=== PATIENT | female | born 1955 | race Caucasian/White ===

== ENCOUNTER 2021-04-19 21:15 | Outpatient (REF) | payer MEDICARE, BC, SELFPAY ==
[2021-04-19 20:39] LABS: Abs Immature Grans 0.01 10^3/uL (0.0-0.06); Absolute Basophil Count 0.06 10^3/uL (0.0-0.2); Absolute Eosinophil Count 0.05 10^3/uL (0.0-0.7); Absolute Lymphocyte Count 1.89 10^3/uL (1.2-3.4); Absolute Monocyte Count 0.58 10^3/uL (0.1-0.8); Absolute Neutrophil Count 4.24 10^3/uL (1.2-6.7); Basophils % 0.9; Eosinophils % 0.7; HGB 12.2 g/dL (11.2-15.7); Immature Grans % 0.1; Lymphocytes % 27.7; MCH 31.1 pg (27.0-33.0); MCV 94.4 fL (80-95); MPV 11.4 fL (8.0-11.0); Monocytes % 8.5; Neutrophils % 62.1; Nucleated RBC 0 %; Platelet Count 240 10^3/uL (130-400); RBC 3.92 10^6/uL (3.93-5.22); RDW 12.9 % (11.7-14.6); RDW-SD 44.6 fL; WBC 6.83 10^3/uL (4.4-10.8)
[2021-04-19 21:01] LABS: ALT 25 U/L (14-59); AST 16 U/L (15-37); Albumin 3.8 g/dL (3.4-5.0); Alkaline Phosphatase 58 U/L (46-116); Anion Gap 6.2 mmol/L (3-11); BUN 15 mg/dL (7-18); Bilirubin, Total 0.3 mg/dL (0.2-1.0); CO2 27.8 mmol/L (21.0-32.0); CREATININE 0.7 mg/dL (0.55-1.02); Chloride 101 mmol/L (98-107); Glucose 89 mg/dL (74-106); Potassium 4.9 mmol/L (3.5-5.1); Sodium 135 mmol/L (136-145)
== END 2021-04-19 21:16 | disposition home or self-care (01) ==
LOC: NCHCN 21:15
PROVIDERS: PCP Family Medicine; Visit Provider Internal Medicine
DX: Z00.00 Encounter for general adult medical examination without abnormal findings (principal); Z80.9 Family history of malignant neoplasm, unspecified
CPT/HCPCS: 80053; 85025

== ENCOUNTER 2023-04-25 14:22 | Outpatient (REF) | payer MEDICARE, BC, SELFPAY ==
[2023-04-25 17:47] LABS: Anion Gap 6.9 mmol/L (3-11); BUN 16 mg/dL (7-18); CO2 28.1 mmol/L (21.0-32.0); CREATININE 0.7 mg/dL (0.55-1.02); Calcium 9.8 mg/dL (8.5-10.1); Calculated LDL 115 mg/dL (<100); Chloride 96 mmol/L (98-107); Cholesterol 251 mg/dL (<200); Estimated GFR 93.56 (mL/min/1.73m2); Glucose 98 mg/dL (74-106); HDL Cholesterol 125 mg/dL (40-60); Potassium 4.6 mmol/L (3.5-5.1); Sodium 131 mmol/L (136-145); Triglyceride 58 mg/dL (<150)
== END 2023-04-25 14:23 | disposition home or self-care (01) ==
LOC: NCHCN 14:22
PROVIDERS: PCP Family Medicine; Visit Provider Internal Medicine
DX: Z00.00 Encounter for general adult medical examination without abnormal findings (principal); Z13.220 Encounter for screening for lipoid disorders
CPT/HCPCS: 80048; 80061

== ENCOUNTER 2023-06-13 14:15 | Outpatient (REF) | payer MEDICARE, BC, SELFPAY ==
[2023-06-13 21:21] LABS: Anion Gap 4.6 mmol/L (3-11); BUN 13 mg/dL (7-18); CO2 31.4 mmol/L (21.0-32.0); CREATININE 0.8 mg/dL (0.55-1.02); Calcium 9.2 mg/dL (8.5-10.1); Chloride 94 mmol/L (98-107); Estimated GFR 79.71 (mL/min/1.73m2); Glucose 105 mg/dL (74-106); Potassium 4.7 mmol/L (3.5-5.1); Sodium 130 mmol/L (136-145)
[2023-06-14 01:12] LABS: Sodium, Urine 31 mmol/L
[2023-06-14 17:36] LABS: Osmolality, Urine 225 mOsm/kg (150-1150)
== END 2023-06-13 14:16 | disposition home or self-care (01) ==
LOC: NCHCN 14:15
PROVIDERS: PCP Family Medicine; Visit Provider Internal Medicine
DX: E87.1 Hypo-osmolality and hyponatremia (principal)
CPT/HCPCS: 80048; 83935; 84300

== ENCOUNTER 2023-09-12 15:11 | Outpatient (REF) | payer MEDICARE, BC, SELFPAY ==
[2023-09-12 21:24] LABS: Anion Gap 6.2 mmol/L (3-11); BUN 18 mg/dL (7-18); CO2 27.8 mmol/L (21.0-32.0); CREATININE 0.6 mg/dL (0.55-1.02); Calcium 8.9 mg/dL (8.5-10.1); Chloride 94 mmol/L (98-107); Glucose 92 mg/dL (74-106); Potassium 5.6 mmol/L (3.5-5.1); Sodium 128 mmol/L (136-145)
== END 2023-09-12 15:12 | disposition home or self-care (01) ==
LOC: NCHCN 15:11
PROVIDERS: PCP Family Medicine; Referring Provider Internal Medicine; Visit Provider Internal Medicine
DX: E87.1 Hypo-osmolality and hyponatremia (principal)
CPT/HCPCS: 80048

== ENCOUNTER 2023-11-04 15:05 | Outpatient (REF) | payer MEDICARE, BC, SELFPAY ==
[2023-11-04 15:02] LABS: Anion Gap 6.3 mmol/L (3-11); BUN 19 mg/dL (7-18); CO2 30.7 mmol/L (21.0-32.0); CREATININE 0.7 mg/dL (0.55-1.02); Calcium 9.3 mg/dL (8.5-10.1); Chloride 97 mmol/L (98-107); Estimated GFR 92.98 (mL/min/1.73m2); Glucose 98 mg/dL (74-106); Potassium 4.9 mmol/L (3.5-5.1); Sodium 134 mmol/L (136-145)
== END 2023-11-04 15:06 | disposition home or self-care (01) ==
LOC: NCHCN 15:05
PROVIDERS: PCP Family Medicine; Visit Provider Internal Medicine
DX: E87.1 Hypo-osmolality and hyponatremia (principal)
CPT/HCPCS: 80048

== ENCOUNTER 2024-01-29 21:00 | Outpatient (REF) | payer MEDICARE, BC, SELFPAY | END 2024-01-29 21:01 | disposition home or self-care (01) | LOC: NCHCN 21:00 | PROVIDERS: PCP Family Medicine; Visit Provider Physician Assistant | DX: R39.89 Other symptoms and signs involving the genitourinary system (principal) | CPT/HCPCS: 87086 ==

== ENCOUNTER 2024-04-27 16:30 | Outpatient (REF) | payer MEDICARE, BC, SELFPAY ==
[2024-04-27 19:30] LABS: Anion Gap 7.7 mmol/L (3-11); BUN 19 mg/dL (7-18); CO2 29.3 mmol/L (21.0-32.0); CREATININE 0.8 mg/dL (0.55-1.02); Calcium 9.6 mg/dL (8.5-10.1); Chloride 100 mmol/L (98-107); Estimated GFR 79.22 (mL/min/1.73m2); Glucose 100 mg/dL (74-106); Potassium 4.8 mmol/L (3.5-5.1); Sodium 137 mmol/L (136-145)
== END 2024-04-27 16:31 | disposition home or self-care (01) ==
LOC: NCHCN 16:30
PROVIDERS: PCP Family Medicine; Visit Provider Internal Medicine
DX: E87.1 Hypo-osmolality and hyponatremia (principal)
CPT/HCPCS: 80048

== ENCOUNTER 2025-01-29 17:46 | Outpatient (REF) | payer MEDICARE, BC, SELFPAY ==
[2025-01-29 18:31] LABS: Abs Immature Grans 0.01 10^3/uL (0.0-0.06); HCT 26.2 % (36.0-46.0); HGB 8.6 g/dL (11.2-15.7); Immature Grans % 0.2 %; MCH 28.7 pg (27.0-33.0); MCHC 32.8 % (32.0-36.0); MCV 87 fL (80-95); MPV 10.8 fL (8.0-11.0); Platelet Count 288 10^3/uL (130-400); RBC 3.00 10^6/uL (3.93-5.22); RDW 13.5 % (11.7-14.6); RDW-SD 43.4 fL; WBC 6.47 10^3/uL (4.4-10.8)
[2025-01-29 18:46] LABS: ALT 28 U/L (14-59); AST 18 U/L (15-37); Albumin 3.8 g/dL (3.4-5.0); Alkaline Phosphatase 46 U/L (46-116); Anion Gap 8.6 mmol/L (3-11); BUN 14 mg/dL (7-18); Bilirubin, Total 0.2 mg/dL (0.2-1.0); CO2 28.4 mmol/L (21.0-32.0); Calcium 9.4 mg/dL (8.5-10.1); Chloride 97 mmol/L (98-107); Estimated GFR 100.21 (mL/min/1.73m2); Glucose 102 mg/dL (74-106); Lipase 45 U/L (<78); Potassium 4.4 mmol/L (3.5-5.1); Sodium 134 mmol/L (136-145); Total Protein 7.3 g/dL (6.4-8.2)
== END 2025-01-29 17:47 | disposition home or self-care (01) ==
LOC: NCHCN 17:46
PROVIDERS: PCP Family Medicine; Visit Provider Internal Medicine
DX: R10.12 Left upper quadrant pain (principal)
CPT/HCPCS: 80053; 83690; 85025

== ENCOUNTER 2025-02-01 13:51 | Outpatient (REF) | payer MEDICARE, BC, SELFPAY ==
[2025-02-01 21:59] LABS: Iron 38 ug/dL (50-170); Total Iron Binding Capacity 369 ug/dL (250-450); Transferrin Sat 10 % (15-50)
[2025-02-01 22:25] LABS: Ferritin 12 ng/mL (8-252); Vitamin B12 407 pg/mL (193-986)
[2025-02-05 13:39] LABS: Helicobacter pylori Ag, Feces Negative (Negative)
== END 2025-02-01 13:52 | disposition home or self-care (01) ==
LOC: NCHCN 13:51
PROVIDERS: PCP Family Medicine; Visit Provider Internal Medicine
DX: D64.9 Anemia, unspecified (principal); R10.12 Left upper quadrant pain
CPT/HCPCS: 87338; 82607; 82728; 83540; 83550; 85045

== ENCOUNTER 2025-02-04 01:03 | Outpatient (CLI) | payer MEDICARE, BC, SELFPAY ==
--- NOTE | 2025-02-04 | DI.CT_ITS ---
Exam(s) CT ABDOMEN PELVIS W EXAM: CT ABDOMEN PELVIS W CLINICAL HISTORY: L UPPER QUAD ABD PAIN, R10.12 ABD PAIN [id number] ,TENDER ON EXAM. TECHNIQUE: Imaging Protocol: Axial computed tomography images with coronal and sagittal reformatted images were created and reviewed CONTRAST MATERIAL: Intravenous: Omnipaque 350 Contrast volume:75 ml Oral: Wall small kidney no COMPARISON: No exams were available for comparison FINDINGS: ABDOMEN and PELVIS: The exam is somewhat limited due to paucity of intra-abdominal fat. Lung Bases: No acute findings. Liver: Normal density. No suspicious mass. Gallbladder and biliary tract: Cholecystectomy. No biliary dilation. Pancreas: Normal density. No abnormal calcifications or inflammatory process. Ill-defined mass noted at the tail of the pancreas, difficult to discretely measure but measuring approximately 5 x 3 x 2.5 cm. It is difficult to separate from the posterior aspect of the stomach. There is attenuation of the splenic vein. Splenic artery appears patent. Spleen: Normal. Kidneys: Normal size, contour and axis. No radiodense stones. No obstructive uropathy. No suspicious masses seen. Parapelvic cysts are noted in the left kidney. Adrenal glands: No masses seen. Vasculature: Abdominal aorta non-dilated. Soft tissues: Unremarkable. Bladder: No gross wall thickening. No calculi.No focal mass. Bowel: No obstruction. No bowel wall thickening. Appendix not seen. Surgical clips at cecal base. Large quantity of fecal material. Peritoneal cavity: there is a moderate quantity of ascites, seen around the liver and spleen and extending into the pelvis. No focal collection. No mesenteric inflammatory response. No free air. Bones: Unremarkable for age. Reproductive organs: Uterus atrophic. No evidence adnexal masses. Lymph nodes: No pathologically enlarged lymph nodes. IMPRESSION:: Suspicious ill-defined mass in the tail of the pancreas measuring approximately 5 cm. Moderate quantity of ascites in the abdomen and pelvis. RADIATION DOSE DELIVERED: 215.4mGy.cm Total DLP DATA REPOSITORY: All CT scans at this facility are submitted to the National Radiology Data Registry (NRDR) Dose Index Registry (DIR) with the [employer] ([employer]). RADIATION OPTIMIZATION: All CT scans at this facility use at least one of these dose optimization techniques: automated exposure control; mA and/or kV adjustment per patient size (includes targeted exams where dose is matched to clinical indication); or iterative reconstruction.
[2025-02-04] MEDS: Barium Sulfate 2% W/V-Berry Smoothie 450 ML BTL PO ×2 (09:56→09:57)
[2025-02-04] MEDS: Omnipaque 350 MG/ML 100 ML BTL 75 ML IJ (11:48)
[2025-02-04] MEDS: Normal Saline - Diluent 50 ML VIAL IJ (11:48)
== END 2025-02-04 01:23 ==
PROVIDERS: PCP Family Medicine; Visit Provider Internal Medicine
DX: R10.12 Left upper quadrant pain (principal); R18.8 Other ascites
CPT/HCPCS: 74177; J3490

== ENCOUNTER 2025-02-11 13:53 | Outpatient (REF) | payer MEDICARE, BC, SELFPAY ==
[2025-02-11 15:22] LABS: HCT 26.1 % (36.0-46.0); HGB 8.5 g/dL (11.2-15.7); MCH 27.7 pg (27.0-33.0); MCHC 32.6 % (32.0-36.0); MCV 85 fL (80-95); MPV 10.9 fL (8.0-11.0); Platelet Count 276 10^3/uL (130-400); RBC 3.07 10^6/uL (3.93-5.22); RDW 14.6 % (11.7-14.6); RDW-SD 45.3 fL; WBC 6.07 10^3/uL (4.4-10.8)
[2025-02-11 15:33] LABS: Anion Gap 5.8 mmol/L (3-11); BUN 13 mg/dL (7-18); CO2 29.2 mmol/L (21.0-32.0); Calcium 8.6 mg/dL (8.5-10.1); Chloride 94 mmol/L (98-107); Estimated GFR 92.41 (mL/min/1.73m2); Glucose 138 mg/dL (74-106); Potassium 4.5 mmol/L (3.5-5.1); Sodium 129 mmol/L (136-145)
== END 2025-02-11 13:54 | disposition home or self-care (01) ==
LOC: NCHCN 13:53
PROVIDERS: PCP Family Medicine; Visit Provider Internal Medicine
DX: E87.1 Hypo-osmolality and hyponatremia (principal); D64.9 Anemia, unspecified
CPT/HCPCS: 80048; 85027

== ENCOUNTER 2025-02-19 00:40 | Outpatient (CLI) | payer MEDICARE, BC, SELFPAY ==
[2025-02-19] MEDS: Normal Saline - Diluent 50 ML VIAL IJ (13:31)
[2025-02-19] MEDS: Omnipaque 350 MG/ML 500 ML BTL-Imaging package 70 ML IJ (13:32)
--- NOTE | 2025-02-19 13:33 | DI.CT_ITS ---
Exam(s) CT CHEST W EXAM: CT CHEST W CLINICAL HISTORY: K86.89 Other specified diseases pancreas, mass. TECHNIQUE: Multi planar reconstructions were performed. CONTRAST MATERIAL: Omnipaque 350; 70 mL cc COMPARISON: CT CT ABDOMEN PELVIS W from 02/04/2025 FINDINGS: CHEST: LUNGS: There are no intraluminal filling defects in the pulmonary arteries to suggest the presence acute pulmonary emboli in there is no evidence of pulmonary infarction.. There are no confluent infiltrates. There is a small amount of right pleural fluid. In the right lung there is a pleural based 4 millimeter nodule in the posterior segment of the right upper lobe there are no significant nodules in the left lung. There are no pleural effusions. MEDIASTINUM: There is no hilar nor mediastinal adenopathy. Visualized thyroid unremarkable. CARDIAC: Heart size is normal. There is no pericardial effusion.Caliber of the thoracic aorta is within normal limits. VISUALIZED UPPER ABDOMEN:There is ascites evident in the upper abdomen. OSSEOUS: No significant osseous lesions.No fractures evident.. IMPRESSION: 1. There is a small benign-appearing 4 millimeter pleural base nodule in the posterior segment of the right upper lobe. No evidence of obvious metastatic nodules in either lung field. 2. No confluent infiltrates nor pleural effusions and no intrathoracic adenopathy evident. 3. Ascites is noted in the upper abdomen. RADIATION DOSE DELIVERED: 68.76mGy.cm Total DLP DATA REPOSITORY: All CT scans at this facility are submitted to the National Radiology Data Registry (NRDR) Dose Index Registry (DIR) with the [employer] ([employer]). RADIATION OPTIMIZATION: All CT scans at this facility use at least one of these dose optimization techniques: automated exposure control; mA and/or kV adjustment per patient size (includes targeted exams where dose is matched to clinical indication); or iterative reconstruction.
== END 2025-02-19 01:00 ==
LOC: DI 00:40
PROVIDERS: PCP Family Medicine; Visit Provider Internal Medicine
DX: K86.89 Other specified diseases of pancreas (principal); R91.8 Other nonspecific abnormal finding of lung field
CPT/HCPCS: 71260